=== PATIENT | female | born 1950 ===

== ENCOUNTER 2018-12-30 07:00 | Day surgery (SDC) | payer OTHER ==
[~2018-12-30] VITALS: Ht 167.6 cm; Wt 104.3 kg
[~2018-12-30 07:00] MED LIST: BUSPAR PO; FORTAMET500 MG PO; IRBESARTAN-HCT1 EAC1 PO; PRAVACOL PO; PROCARDIA PO
[2018-12-30] MEDS ORDERED: PRAVASTATIN SOD20 MG PO (08:30)
[2018-12-30] MEDS ORDERED: NIFE60TA3 PO (08:32)
[2018-12-30] MEDS ORDERED: BUSPIRONE HCL30 MG PO (08:33)
[2018-12-31] MEDS ORDERED: PERCOCET 5-3251 EACH PO (12:08)
[2018-12-31] MEDS ORDERED: SYNTHROID175 MCG PO (12:13)
== END 2018-12-31 08:00 | disposition home or self-care (01) ==
LOC: CIR.AMB 07:00 → SURG 12:37 → O/R 12:37 → CIR.AMB 12-31 08:00 → SURG 12-31 12:43
DX: C73 Malignant neoplasm of thyroid gland (principal)